=== PATIENT | male | born 1990 | race Caucasian/White ===

== ENCOUNTER 2018-12-11 18:18 | Inpatient (IN) | payer BC, OTHER, SELFPAY ==
[~2018-12-11] VITALS: Ht 180.3 cm; Wt 78.5 kg
[2018-12-11] MEDS ORDERED: ONDANSETRON 2MG/ML, 2ML IVPush ONE (19:00)
[2018-12-11] MEDS ORDERED: MORPHINE SULFATE 4 MG/ML, 1ML IVPush PRN (19:00)
[2018-12-11] MEDS ORDERED: MORPHINE SULFATE 4 MG/ML, 1ML ONE (19:05)
[2018-12-11] MEDS ORDERED: ONDANSETRON 2MG/ML, 2ML ONE ×2 (19:07→21:45)
--- NOTE | 2018-12-11 19:13 | NUR ---
REPORT RECEIVED FROM MATTHEW GONZALEZ AT BEDSIDE. PIV ESTABLISHED, PT MEDICATED PER EMAR, TOLERATED WELL. 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 BP AND SPO2 MONITORS IN PLACE. CALL LIGHT IN REACH. AWAITING XRAY READ AND DISPO.
[2018-12-11] MEDS ORDERED: CEFAZOLIN PMX 1GM/50ML 50 ML IVPB ONE (19:30)
--- NOTE | 2018-12-11 19:31 | NUR ---
PT REPORTS PAIN LEVEL 6/10, DENIES NEED FOR ADDITIONAL PAIN MEDICATION AT THIS TIME. PT A&O, RESPS EVEN AND UNLABORED, XRAY RESULTED. AWAITING FURTHER ORDERS AT THIS TIME.
[2018-12-11] MEDS ORDERED: CETI1TAB6 PO (19:33)
--- NOTE | 2018-12-11 19:35 | NUR ---
LATE ENTRY: REPORT GIVEN TO GABRIEL DILLARD.
[2018-12-11] MEDS ORDERED: CEFAZOLIN PMX 1GM/50ML 50 ML ONE (19:41)
--- NOTE | 2018-12-11 19:47 | NUR ---
Task RN: Report given to danilo dao RN in OR.
[2018-12-11] MEDS ORDERED: SODIUM CHLORIDE 0.9% 1,000ML IVBOLUS ONE (20:00)
[2018-12-11] MEDS ORDERED: SODIUM CHLORIDE FLUSH 10ML SYR IVF ONE (20:00)
[2018-12-11] MEDS ORDERED: MIDAZOLAM 1 MG/ML, 2ML ONE (20:30)
[2018-12-11] MEDS ORDERED: FENTANYL PF 250 MCG/5ML ONE (20:30)
[2018-12-11] MEDS ORDERED: SUCCINYLCHOLINE 20 MG/ML, 10ML ONE (20:39)
[2018-12-11] MEDS ORDERED: ROCURONIUM 10MG/ML,5ML ONE (20:39)
[2018-12-11] MEDS ORDERED: ZOLPIDEM 5MG TABLET PO PRN (21:00)
[2018-12-11] MEDS ORDERED: HYDROmorphone 2 MG/ML, 1ML ONE (21:26)
[2018-12-11] MEDS ORDERED: ONDANSETRON 2MG/ML, 2ML IV PRN ×2 (21:30→23:45)
[2018-12-11] MEDS ORDERED: hydrALAzine 20 MG/ML, 1ML IV PRN (21:30)
[2018-12-11] MEDS ORDERED: METOPROLOL 1 MG/ML, 5ML IV PRN (21:30)
[2018-12-11] MEDS ORDERED: ACETAMINOPHEN 325 MG TABLET PO PRN ×2 (21:30→23:45)
[2018-12-11] MEDS ORDERED: MEPERIDINE/PF 25MG/0.5ML IVPush PRN (21:30)
[2018-12-11] MEDS ORDERED: MIDAZOLAM 1 MG/ML, 2ML IV PRN (21:30)
[2018-12-11] MEDS ORDERED: HYDROmorphone 2 MG/ML, 1ML IVPush PRN (21:30)
[2018-12-11] MEDS ORDERED: OXYcodone 5 MG/5 ML ORAL.SOL UDC PO PRN (21:30)
[2018-12-11] MEDS ORDERED: SCOPOLAMINE PATCH, 1.5MG PATCH.TD72 TD PRN (21:30)
[2018-12-11] MEDS ORDERED: PROMETHAZINE 25 MG/ML, 1ML IV PRN (21:30)
[2018-12-11] MEDS ORDERED: ALBUTEROL/IPRATROPIUM 2.5MG/0.5MG, 3 ML NPPB PRN (21:30)
[2018-12-11] MEDS ORDERED: DEXAMETHASONE 4 MG/ML, 1ML ONE (21:45)
[2018-12-11] MEDS ORDERED: CEFAZOLIN 1,000 MG ONE (21:45)
[2018-12-11] MEDS ORDERED: PROPOFOL 10 MG/ML, 20ML ONE (21:45)
[2018-12-11] MEDS ORDERED: OXYcodone 5 MG/5 ML ORAL.SOL UDC ONE (21:52)
[2018-12-11] MEDS ORDERED: FENTANYL PF 100 MCG/2ML ONE (21:52)
[2018-12-11] MEDS ORDERED: ACETAMINOPHEN 650 MG/20.3 ML UDC ONE (21:52)
[2018-12-11] MEDS ORDERED: KETOROLAC 30 MG/1 ML ONE (22:12)
[2018-12-11] MEDS ORDERED: KETOROLAC 30 MG/1 ML IVPush STA (22:14)
[2018-12-11] MEDS ORDERED: MEPERIDINE/PF 25MG/ML,1ML ONE (22:29)
[2018-12-11] MEDS: FENTANYL PF 100 MCG/2ML IV PRN ×2 (22:40→22:59)
[2018-12-11 23:30] VITALS: BP 133/88
[2018-12-11] MEDS ORDERED: OXYcodone/APAP 5/325MG TABLET PO PRN (23:45)
[2018-12-11] MEDS ORDERED: morphine SULFATE 10 MG/ML, 1ML IV PRN (23:45)
[2018-12-11 23:49] VITALS: BP 133/88
[2018-12-12] MEDS: D5%-LACTATED RINGERS 1,000 ML IV SCH ×4 (00:48→23:45)
[2018-12-12 02:45] VITALS: BP 125/76
[2018-12-12] MEDS: HYDROcodone/APAP 10/325 MG TABLET PO PRN ×5 (02:50→19:48)
[2018-12-12 04:15] VITALS: BP 115/74
[2018-12-12] MEDS: CEFAZOLIN PMX 2GM/50ML 50 ML IVPB SCH ×3 (05:43→22:19)
[2018-12-12] MEDS: KETOROLAC 30 MG/1 ML IM SCH ×3 (05:52→22:18)
[2018-12-12 07:58] VITALS: BP 107/65
[2018-12-12 13:18] VITALS: BP 122/74
[2018-12-12 19:25] VITALS: BP 110/72
[2018-12-13 02:30] VITALS: BP 112/67
[2018-12-13] MEDS: HYDROcodone/APAP 10/325 MG TABLET PO PRN ×4 (02:32→15:13)
[2018-12-13] MEDS: CEFAZOLIN PMX 2GM/50ML 50 ML IVPB SCH ×2 (06:48→13:12)
[2018-12-13] MEDS: D5%-LACTATED RINGERS 1,000 ML IV SCH (06:57)
[2018-12-13 08:21] VITALS: BP 102/62
[2018-12-13 12:48] VITALS: BP 117/71
== END 2018-12-13 15:44 | disposition home or self-care (01) | DRG 494 ==
LOC: ED 19:43 → EDIP 20:06 → 4NOR 23:35 → DCLOUNGE 12-13 15:32
PROVIDERS: ADMIT Orthopaedic Surgery; ATTEND Orthopaedic Surgery
PROC: 0QSG06Z Reposition Right Tibia with Intramedullary Internal Fixation Device, Open Approach (ICD-10-PCS; principal; 2018-12-11 20:00)
DX: S82.201B Unspecified fracture of shaft of right tibia, initial encounter for open fracture type I or II (principal); G89.11 Acute pain due to trauma; F17.210 Nicotine dependence, cigarettes, uncomplicated; Z88.8 Allergy status to other drugs, medicaments and biological substances; V86.56XA Driver of dirt bike or motor/cross bike injured in nontraffic accident, initial encounter; Y93.89 Activity, other specified; Y92.89 Other specified places as the place of occurrence of the external cause; Y99.8 Other external cause status
CPT/HCPCS: 73590; 76000; 99285; J7121; 96374; 96375; C1713; G0378; J0690; J1100; J1170; J1885; J2175; J2250; J2405; J2704; J3010; J0330; J7030